=== PATIENT | female | born 1990 | race African-American/Black ===

== ENCOUNTER → 2017-12-03 | Outpatient (CLI) | payer MEDICAID ==
[~2017-12-03] MED LIST: CEPH500C3 PO; SULF-154 PO; Z.0.NO CURRENT MEDS
== END ==
LOC: HPND 09:21
PROVIDERS: ATTEND Obstetrics & Gynecology
DX: O35.2XX0 Maternal care for (suspected) hereditary disease in fetus, not applicable or unspecified (principal)
CPT/HCPCS: 76811; 76825; 76827; 93325